=== PATIENT | male | born 1955 | race Caucasian/White ===

== ENCOUNTER 2021-03-06 02:30 | Inpatient (IN) | payer MEDICAID ==
[~2021-03-06] VITALS: Ht 180.3 cm; Wt 93.0 kg
[2021-03-06 02:32] VITALS: BP 140/78
[2021-03-06] MEDS ORDERED: NITROGLYCERIN 0.4 MG TAB SL ONE (03:00)
[2021-03-06] MEDS ORDERED: ASPIRIN 325 MG TAB PO ONE (03:00)
[2021-03-06 03:19] LABS: MEAN CORPUSCULAR HEMOGLOBIN 30 pg (27-31); MEAN CORPUSCULAR HGB CONC 34 g/dL (33-37); RED CELL DISTRIBUTION WIDTH 13.1 % (11.6-13.7)
[2021-03-06 03:54] LABS: ALBUMIN 3.4 g/dL (3.4-5.0); ANION GAP 15.2 (8-16); CARBON DIOXIDE 23.6 mmol/L (21-32); POTASSIUM 3.8 mmol/L (3.5-5.1); TOTAL BILIRUBIN 0.6 mg/dL (0.0-1.0)
[2021-03-06 05:24] LABS: BASOPHILS % (AUTO) 0.1 % (0.0-2.0); EOSINOPHILS % (AUTO) 0.1 % (0.0-4.0); HEMATOCRIT 44.4 % (36-52); HEMOGLOBIN 15.1 g/dL (12.0-18.0); LYMPHOCYTES # (AUTO) 1.6 K/uL (2.0-11.5); LYMPHOCYTES % (AUTO) 15.7 % (20.5-51.1); MONOCYTES # (AUTO) 0.9 K/uL (0.8-1.0); MONOCYTES % (AUTO) 8.5 % (1.7-9.3); NEUTROPHILS # (AUTO) 7.9 K/uL (1.8-7.7); NEUTROPHILS % (AUTO) 75.6 % (42.2-75.2); PLATELET COUNT (AUTO) 176 K/uL (140-450); RED BLOOD CELL COUNT(AUTO) 5.05 MIL/uL (4.20-6.10); WHITE BLOOD COUNT (AUTO) 10.5 K/uL (4.8-10.8)
[2021-03-06] MEDS ORDERED: AZITHROMYCIN 250 MG TAB PO ONE (05:35)
[2021-03-06] MEDS ORDERED: cefTRIAXone 1,000 MG VIAL ONE (05:47)
[2021-03-06] MEDS ORDERED: BENA20TA PO (06:26)
[2021-03-06] MEDS ORDERED: CARV3.12 PO (06:26)
[2021-03-06] MEDS ORDERED: AMLO10TA PO (06:26)
[2021-03-06] MEDS ORDERED: CLOP75TA26 PO (06:26)
[2021-03-06] MEDS ORDERED: ATOR20TA PO (06:26)
[2021-03-06 08:00] VITALS: BP 135/73
[2021-03-06] MEDS ORDERED: ONDANSETRON 4 MG/2 ML VIAL IM/IVP PRN (08:15)
[2021-03-06] MEDS ORDERED: ZOLPIDEM 5 MG TAB PO PRN (08:15)
[2021-03-06] MEDS ORDERED: POTASSIUM CHLORIDE 10 MEQ TABER PO PRN (08:15)
[2021-03-06] MEDS: NACL 0.9% 1,000 ML IV SCH (08:15)
[2021-03-06] MEDS ORDERED: ACETAMINOPHEN 325 MG TAB PO PRN (08:15)
[2021-03-06] MEDS ORDERED: guaiFENesin DM 200/20 MG-10 ML 10 ML UDC PO PRN (08:15)
[2021-03-06] MEDS ORDERED: HYDROcodone/APAP 7.5/325 MG 1 TAB PO PRN (08:15)
[2021-03-06] MEDS ORDERED: DOCUSATE SODIUM 100 MG GELCAP PO PRN (08:15)
[2021-03-06] MEDS ORDERED: NITROGLYCERIN 0.4 MG TAB SL PRN (08:20)
[2021-03-06] MEDS: CLOPIDOGREL 75 MG TAB PO SCH (08:53)
[2021-03-06] MEDS: ECOTRIN 81 MG TABEC PO SCH (08:53)
[2021-03-06] MEDS: BENAZEPRIL 20 MG TAB PO SCH (08:53)
[2021-03-06] MEDS: PANTOPRAZOLE 40 MG TABEC PO SCH (08:53)
[2021-03-06] MEDS: carvediloL 3.125 MG TAB PO SCH ×2 (08:54→21:29)
[2021-03-06] MEDS: amLODIPine 5 MG TAB PO SCH (08:54)
[2021-03-06 08:59] LABS: FREE T4 (FREE THYROXINE) 1.18 ng/dL (0.76-1.46); PHOSPHORUS 3.1 mg/dL (2.5-4.9); THYROID STIMULATING HORMONE 3.36 uIU/mL (0.34-3.74)
[2021-03-06] MEDS ORDERED: METOPROLOL 25 MG TAB PO SCH (09:00)
[2021-03-06] MEDS ORDERED: lisinopriL 5 MG TAB PO SCH (09:00)
[2021-03-06 09:01] LABS: PROTHROMBIN TIME 9.9 secs (10.8-13.4)
[2021-03-06 12:00] VITALS: BP 126/75
[2021-03-06 16:00] VITALS: BP 133/78
[2021-03-06] MEDS ORDERED: ATORVASTATIN 20 MG TAB PO SCH (17:00)
[2021-03-06 20:00] VITALS: BP 123/68
[2021-03-07] VITALS: BP 119/69
[2021-03-07] MEDS: NACL 0.9% 1,000 ML IV SCH (02:00)
[2021-03-07 04:00] VITALS: BP 118/73
[2021-03-07 06:52] LABS: ANION GAP 13.5 (8-16); CARBON DIOXIDE 26.2 mmol/L (21-32); CREATININE 0.9 mg/dL (0.6-1.3); POTASSIUM 3.7 mmol/L (3.5-5.1)
[2021-03-07 07:05] LABS: BASOPHILS % (AUTO) 0.1 % (0.0-2.0); EOSINOPHILS % (AUTO) 0.1 % (0.0-4.0); HEMATOCRIT 41.5 % (36-52); HEMOGLOBIN 14.2 g/dL (12.0-18.0); LYMPHOCYTES % (AUTO) 26.7 % (20.5-51.1); MEAN CORPUSCULAR HEMOGLOBIN 30 pg (27-31); MEAN CORPUSCULAR HGB CONC 34 g/dL (33-37); MEAN CORPUSCULAR VOLUME 87.2 fL (80-94); MONOCYTES # (AUTO) 0.8 K/uL (0.8-1.0); MONOCYTES % (AUTO) 10.5 % (1.7-9.3); NEUTROPHILS # (AUTO) 4.8 K/uL (1.8-7.7); NEUTROPHILS % (AUTO) 62.6 % (42.2-75.2); PLATELET COUNT (AUTO) 201 K/uL (140-450); RED BLOOD CELL COUNT(AUTO) 4.75 MIL/uL (4.20-6.10); RED CELL DISTRIBUTION WIDTH 13.1 % (11.6-13.7); WHITE BLOOD COUNT (AUTO) 7.7 K/uL (4.8-10.8)
[2021-03-07 07:08] LABS: T4 (THYROXINE) 9.6 ug/dL (4.5-12.0)
[2021-03-07 08:00] VITALS: BP 124/81
[2021-03-07] MEDS ORDERED: CEPH-588 PO (08:49)
[2021-03-07] MEDS ORDERED: AZIT250T3 PO (08:49)
[2021-03-07] MEDS ORDERED: AZITHROMYCIN 250 MG TAB PO SCH (09:00)
[2021-03-07] MEDS: PANTOPRAZOLE 40 MG TABEC PO SCH (10:01)
[2021-03-07] MEDS: ECOTRIN 81 MG TABEC PO SCH (10:01)
[2021-03-07] MEDS: carvediloL 3.125 MG TAB PO SCH (10:01)
[2021-03-07] MEDS: BENAZEPRIL 20 MG TAB PO SCH (10:01)
[2021-03-07] MEDS: CLOPIDOGREL 75 MG TAB PO SCH (10:01)
[2021-03-07] MEDS: amLODIPine 5 MG TAB PO SCH (10:02)
[2021-03-07 12:00] VITALS: BP 131/83
[2021-03-07 12:15] VITALS: BP 124/81
== END 2021-03-07 13:25 | disposition home or self-care (01) | DRG 720 ==
LOC: MED 02:30 → MTU 04:40
PROVIDERS: ADMIT Family Medicine; ATTEND Family Medicine
DX: A41.9 Sepsis, unspecified organism (principal); J12.82 Pneumonia due to coronavirus disease 2019; I24.9 Acute ischemic heart disease, unspecified; U07.1 COVID-19; I25.10 Atherosclerotic heart disease of native coronary artery without angina pectoris; E78.5 Hyperlipidemia, unspecified; I10 Essential (primary) hypertension; Z95.5 Presence of coronary angioplasty implant and graft
CPT/HCPCS: 36415; 71045; 80048; 80053; 82150; 83036; 83690; 83735; 83880; 84100; 84436; 84439; 84443; 84479; 84484; 85025; 85610; 85730; 87081; 93005; 99285; J0696; J1644; J7060; Q0092; U0003